=== PATIENT | male | born 1975 | race Caucasian/White ===

== ENCOUNTER 2017-03-25 17:58 | Emergency (ER) | payer OTHER ==
[~2017-03-25] VITALS: Ht 188 cm; Wt 126.2 kg
[~2017-03-25 17:58] MED LIST: FLEXERIL10 MG PO; MEDROL DOSEPAK4 MG PO; MELOXICAM15 MG PO; NAPROSYN500 MG PO; PERCOCET 5/31 TABLET PO; PERCOCET 7.51 TABLET PO; PREDNISONE10 M1 PO; PREDNISONE10 MG PO; SKELAXIN800 MG PO; VALIUM5 MG PO; ZANAFLEX4 M1 PO
[2017-03-25 20:52] LABS: HEMATOCRIT 40.1 % (38.0-50.0); MCH 30.1 PG (29.0-34.0); MCHC 34.4 G/DL (30.0-36.0); MCV 87.6 FL (86-99); MEAN PLAT.VOLUME 9.5 uM^3 (9.0-12.4); PLATELET COUNT 167 K/uL (156-360); RBC DIS.WIDTH-CV 12.2 % (11.8-14.6); RBC DIS.WIDTH-SD 38.6 % (39-53); RED BLOOD COUNT 4.58 M/uL (4.00-5.50); WHITE BLOOD COUNT 9.6 K/uL (4.1-10.2)
[2017-03-25 21:01] LABS: CHLORIDE 108 mEq/L (99-109); SODIUM 141 mEq/L (136-147)
[2017-03-25 21:03] LABS: GLUCOSE 100 mg/dL (70-99)
[2017-03-25 21:04] LABS: ANION GAP 8 MEQ/L (2-14)
[2017-03-25 21:05] LABS: TOTAL BILIRUBIN 0.3 mg/dL (0.0-1.0)
[2017-03-25 21:06] LABS: ALKALINE PHOSPHATASE 85 IU/L (3-129)
[2017-03-25 21:07] LABS: GFR ESTIMATE (CALCULATED) > 59 mL/min/
[2017-03-25 21:08] LABS: UREA NITROGEN (BUN) 17 mg/dL (9-23)
[2017-03-25 22:19] LABS: ADD MIUA? YES; BILIRUBIN NEGATIVE; BLOOD NEGATIVE; COLOR YELLOW ((YELLOW)); GLUCOSE (STRIP) NEGATIVE; KETONES NEGATIVE; LEUKOCYTES NEGATIVE; NITRITE NEGATIVE; PROTEIN (STRIP) 30; SPECIFIC GRAVITY 1.028 (1.000-1.030)
[2017-03-25] MEDS ORDERED: ROXICODONE5 MG PO (22:37)
[2017-03-25 22:41] LABS: BACTERIA 1+ /HPF; CASTS NONE SEEN /LPF; CRYSTALS PRESENT; EPITHELIAL CELLS RARE /HPF; MUCUS 3+ /LPF; RED BLOOD CELLS NONE SEEN /HPF (0-5); UCUL ADDED? NO; WHITE BLOOD CELLS 0-5 /HPF (0-5)
[2017-03-25 22:42] LABS: CALCIUM OXALATE CRYSTALS 2+ /HPF
[2017-03-25 23:06] VITALS: BP 126/81
== END 2017-03-25 23:07 | disposition home or self-care (01) ==
LOC: EME 17:58 → EXP 17:58
PROVIDERS: Physician Assistant
DX: M54.16 Radiculopathy, lumbar region (principal); R21 Rash and other nonspecific skin eruption; M25.471 Effusion, right ankle; M25.472 Effusion, left ankle; R79.89 Other specified abnormal findings of blood chemistry; F17.200 Nicotine dependence, unspecified, uncomplicated
CPT/HCPCS: 80053; 81003; 85027; 99281; 99284; J3010

== ENCOUNTER 2017-04-28 15:44 | Emergency (ER) | payer OTHER ==
[~2017-04-28] VITALS: Ht 188 cm; Wt 129.7 kg
[~2017-04-28 15:44] MED LIST changes: +ROXICODONE5 MG PO
[2017-04-28] MEDS ORDERED: PREDNISONE10 MG PO (17:26)
[2017-04-28] MEDS ORDERED: ULTRAM50 MG PO (17:26)
[2017-04-28] MEDS ORDERED: VENTOLIN HFA18 GM IH (17:27)
[2017-04-28 17:44] VITALS: BP 114/93
== END 2017-04-28 17:46 | disposition home or self-care (01) ==
LOC: EME 15:44
DX: M54.5 Low back pain (principal); M79.89 Other specified soft tissue disorders; F17.210 Nicotine dependence, cigarettes, uncomplicated; Z71.6 Tobacco abuse counseling
CPT/HCPCS: 99281; 99283